=== PATIENT | female | born 1970 ===

== ENCOUNTER 2020-12-29 11:17 | Outpatient (CLI) | payer OTHER | END 2020-12-29 11:52 | disposition home or self-care (01) | LOC: SONOGRAMA 11:17 | PROVIDERS: ATTEND Pathology Anatomic Pathology & Clinical Pathology | DX: E04.2 Nontoxic multinodular goiter (principal) ==

== ENCOUNTER 2021-01-05 08:00 | Outpatient (CLI) | payer OTHER | END 2021-01-05 08:30 | disposition home or self-care (01) | LOC: PPH VACUNA 08:00 | PROVIDERS: ATTEND Emergency Medicine Pediatric Emergency Medicine | DX: Z23 Encounter for immunization (principal) ==

== ENCOUNTER 2022-03-23 14:39 | Outpatient (CLI) | payer OTHER | END 2022-03-23 14:50 | disposition home or self-care (01) | LOC: MAMO-SONO 14:39 | PROVIDERS: ATTEND General Practice | DX: N63.0 Unspecified lump in unspecified breast (principal); N64.4 Mastodynia ==

== ENCOUNTER 2022-06-22 13:47 | Outpatient (CLI) | payer OTHER | END 2022-06-22 14:00 | disposition home or self-care (01) | LOC: PPH VACUNA 13:47 | PROVIDERS: ATTEND Emergency Medicine Pediatric Emergency Medicine | DX: Z23 Encounter for immunization (principal) ==